=== PATIENT | female | born 1995 | race Caucasian/White ===

== ENCOUNTER 2018-09-02 18:22 | Emergency (ER) | payer OTHER ==
[~2018-09-02] VITALS: Ht 160 cm; Wt 109.0 kg
[2018-09-02 18:26] VITALS: BP 122/59; Ht 160 cm; Wt 109.0 kg
== END 2018-09-02 19:48 | disposition home or self-care (01) ==
LOC: ED 18:22
DX: S61.101A Unspecified open wound of right thumb with damage to nail, initial encounter (principal); I10 Essential (primary) hypertension; W26.8XXA Contact with other sharp object(s), not elsewhere classified, initial encounter; Y93.89 Activity, other specified; Y92.89 Other specified places as the place of occurrence of the external cause; Y99.0 Civilian activity done for income or pay
CPT/HCPCS: J2001